=== PATIENT | female | born 1985 | race Caucasian/White ===

== ENCOUNTER 2024-02-09 23:00 | Outpatient (CLI) | payer OTHER | END 2024-02-09 23:59 | disposition critical access hospital (66) | LOC: EMS 23:00 | DX: M79.89 Other specified soft tissue disorders (principal); Z91.81 History of falling ==

== ENCOUNTER 2024-02-09 23:20 | Emergency (ER) | payer OTHER ==
[2024-02-09 23:49] LABS: BASOPHILS % (AUTO) 0.2 %; EOSINOPHILS % (AUTO) 0.1 %; HCT - HEMATOCRIT 39.3 % (37.0-47.0); HGB - HEMOGLOBIN 13.6 g/dL (12.0-16.0); LYMPHOCYTES # (AUTO) 0.9 10^3/uL (1.5-3.5); LYMPHOCYTES % (AUTO) 9.1 %; MEAN CORPUSCULAR HEMOGLOBIN 31.3 pg (27.0-31.0); MEAN CORPUSCULAR HGB CONC 34.6 g/dL (32.0-36.0); MEAN CORPUSCULAR VOLUME 90.3 fL (81.0-99.0); MEAN PLATELET VOLUME 11.2 fL (7.9-10.8); MONOCYTES # (AUTO) 0.8 10^3/uL (0.0-1.0); MONOCYTES % (AUTO) 7.3 %; NEUTROPHILS # (AUTO) 8.6 10^3/uL (1.5-6.6); NEUTROPHILS % (AUTO) 82.8 %; PLT - PLATELET COUNT 77 10^3/uL (130-450); RED BLOOD COUNT 4.35 10^6/uL (4.20-5.40); RED CELL DISTRIBUTION WIDTH 14.5 % (12.0-15.0); WHITE BLOOD COUNT 10.4 x10^3/uL (4.8-10.8)
[2024-02-10] LABS: ALBUMIN 3.5 g/dL (3.2-5.5); ALBUMIN/GLOBULIN RATIO 1.3 (1.0-2.2); CALCIUM 8.5 mg/dL (8.5-10.3); CREATININE 0.6 mg/dL (0.6-1.3); CRP - C-REACTIVE PROTEIN 2.4 mg/dL (<0.5); ETOH - ETHANOL 327.4 mg/dL; POTASSIUM 3.7 mmol/L (3.5-4.5); TOTAL PROTEIN 6.2 g/dL (6.4-8.9)
--- NOTE | 2024-02-10 01:43 | ED Physician Documentation ---
History of Present Illness - Stated complaint Stated Complaint: LEFT LEG PAIN AND SWELLING - Chief complaint Chief Complaint: Ext Problem - History obtained from History obtained from: Patient - Additonal information Additional information: Patient is an alcoholic and was undergoing intake at the local inpatient treatment center ([facility]) for treatment of alcohol withdrawal; during the intake process, it was noted that the patient has left leg swelling. The patient says she was aware of mild discomfort and the left leg swelling which she noted a few days ago. This was around the same time that she had slipped and fell in her bathtub, striking the left thigh against the edge of the bathtub. She denies chest pain, shortness of breath. She denies h/o unilateral leg swelling. She was [facility] to come to ED at this time for assessment of the left swelling, specifically for possible DVT Review of Systems Cardiac: denies: Chest pain / pressure Respiratory: denies: Dyspnea Musculoskeletal: reports: Extremity pain, Extremity swelling Neurologic: denies: Focal weakness, Numbness PD PAST MEDICAL HISTORY - Past Medical History Past Medical History: No - Past Surgical History Past Surgical History: No - Allergies Allergies/Adverse Reactions: Allergies Allergy/AdvReac Type Severity Reaction Status Date / Time No Known Drug Allergies Allergy Verified 02/09/24 23:28 - Social History Does the pt smoke?: No Smoking Status: Never smoker Does the pt drink ETOH?: Yes ETOH Use: Liquor Does the pt have substance abuse?: No PD ED PE NORMAL - Vitals Vital signs reviewed: Yes - General General: Alert and oriented X 3, Well developed/nourished, Other (appears anxious, tremulous; she is polite and articulate, follows commands quickly and accurately) - HEENT HEENT: PERRL, EOMI, Moist mucous membranes - Cardiac Cardiac: No murmur - Respiratory Respiratory: No respiratory distress, Clear bilaterally - Extremities Extremities: Other (circumferential LLE swelling at and below the level of the knee. faint erythema around the ankle without sharp/distinct margins. strong palpable left DP and PT pulses) - Neuro Neuro: Alert and oriented X 3 Eye Opening: Spontaneous Motor: Obeys Commands Verbal: Oriented GCS Score: 15 PD ED PE EXPANDED - Cardiac Cardiac: Tachy, Regular Rhythm Results - Vitals Vitals: Vital Signs - 24 hr 02/09/24 02/09/24 02/10/24 23:25 23:56 01:50 Temperature 36.8 C Heart Rate 120 H 100 111 H Respiratory 18 16 16 Rate Blood Pressure 117/99 H 110/82 H 107/74 O2 Saturation 97 96 98 02/10/24 02/10/24 02/10/24 02:59 03:57 06:00 Temperature Heart Rate 109 H 115 H 106 H Respiratory 18 18 18 Rate Blood Pressure 114/79 105/69 103/60 O2 Saturation 95 96 94 Oxygen O2 Source Room air - Labs Labs: Laboratory Tests 02/09/24 02/09/24 02/09/24 23:38 23:38 23:38 WBC 10.4 RBC 4.35 Hgb 13.6 Hct 39.3 MCV 90.3 MCH 31.3 H MCHC 34.6 RDW 14.5 Plt Count 77 L MPV 11.2 H Neut # (Auto) 8.6 H Lymph # (Auto) 0.9 L Chase # (Auto) 0.8 Eos # (Auto) 0.0 Baso # (Auto) 0.0 Absolute Nucleated RBC 0.00 Nucleated RBC % 0.0 ESR 6 D-Dimer > 1050.0 H Sodium Potassium Chloride Carbon Dioxide Anion Gap BUN Creatinine Estimated GFR (MDRD) Glucose Calcium Total Bilirubin AST ALT Alkaline Phosphatase C-Reactive Protein Total Protein Albumin Globulin Albumin/Globulin Ratio Lipase Ethyl Alcohol 02/09/24 23:38 WBC RBC Hgb Hct MCV MCH MCHC RDW Plt Count MPV Neut # (Auto) Lymph # (Auto) Chase # (Auto) Eos # (Auto) Baso # (Auto) Absolute Nucleated RBC Nucleated RBC % ESR D-Dimer Sodium 129 L Potassium 3.7 Chloride 90 L Carbon Dioxide 24 Anion Gap 15.0 H BUN 7 Creatinine 0.6 Estimated GFR (MDRD) 113 Glucose 128 H Calcium 8.5 Total Bilirubin 1.0 AST 163 H ALT 102 H Alkaline Phosphatase 197 H C-Reactive Protein 2.4 H Total Protein 6.2 L Albumin 3.5 Globulin 2.7 Albumin/Globulin Ratio 1.3 Lipase 31 Ethyl Alcohol 327.4 PD Medical Decision Making - ED course Complexity details: reviewed results, re-evaluated patient, considered differential, d/w patient ED course: The most notable abnormalities on tonight's blood tests are serum alcohol (ethanol) level of 327, thrombocytopenia (platelets 77), mild hyponatremia (sodium 129). Mild abnormalities of the LFTs include mildly elevated AST, ALT, alkaline phosphatase, and mildly low serum protein. Normal bilirubin level, normal lipase. She is given 2 mg of lorazepam IV for her alcohol withdrawal symptoms with good effect (both by visualization (the tremulousness resolved) as well as by patient report). Later in ED stay, she was given 1 mg IV lorazepam for recurrence of the tremulousness which again had the desired effect. Regarding the left leg swelling, technical laboratory asst is not on duty at this hour and will not be available for at least another 7-8 hours (from the time of my initial H&P). Thus, the initial plan also involved giving patient 100 mg Lovenox IM, [facility] with plan to have patient return in the morning when ultrasound is available so that this can be undertaken. Unfortunately, [facility] pharmacy personnel representative called and told the ED RN that they recommend no Lovenox due to the thrombocytopenia. Given the logistics of trying to discharge patient back [facility] to complete her intake just to have the patient return several hours later to reregister in the emergency department, possibly to be discharged yet again back to [facility], the plan is changed to: hold patient in the emergency department until the morning for ultrasound, and disposition and necessity of anticoagulation can then be determined based on US results. The ultrasound has not yet been undertaken at the end of my shift, and thus care of this patient is turned over to the oncoming ED physician (Dr. Hartmann). Departure - Departure Clinical Impression: Peripheral edema Alcohol withdrawal Qualifiers: Complication of substance-induced condition: uncomplicated Qualified Code(s): F10.930 - Alcohol use, unspecified with withdrawal, uncomplicated Condition: Good Instructions: ED Withdrawal Alcohol, ED Leg Swelling Unilateral Comments: You were given 2 mg of lorazepam (Ativan) through your IV; this was given to reduce the symptoms associated with alcohol withdrawal. Your left leg swelling could be due to a DVT (deep vein is thrombosis or blood clot). Unfortunately, the confirmatory test is ultrasound, and ultrasound is not available until 7 AM this morning. As we discussed, the reasonable approach in this scenario is to give a weight-based dose of a blood-thinning medication called Lovenox. You were given this medication as a shot (injection). The critical next step is to return to this emergency department between the hours of 7 AM and noon (02/10/2024) at which time you will need to again check in as an emergency department patient so that you can then have the ultrasound of your left leg. The emergency medicine physician will review the results with you and treatment recommendations will be based on those results.
[2024-02-10] MEDS: ONDANSETRON 4 MG/2 ML VIAL IVP STA ×2 (02:02→02:09)
[2024-02-10] MEDS ORDERED: ONDANSETRON 4 MG/2 ML VIAL ONE (02:03)
[2024-02-10] MEDS: LORazepam 2 MG/ML VIAL IVP STA ×4 (02:09→12:04)
[2024-02-10] MEDS: ENOXAPARIN 100 MG/ML SYRINGE SUBQ STA (02:21)
--- NOTE | 2024-02-10 09:17 | Ultrasound Report ---
PROCEDURE: Duplex Ext Veins Left INDICATIONS: atraumatic LLE swelling TECHNIQUE: Real-time imaging, as well as color and pulse Doppler interrogation, were performed of the lower extr emity deep veins from the inguinal ligament to the popliteal fossa. Attempted visualization of the ca lf veins was performed. COMPARISON: None. FINDINGS: Near-complete total occlusive thrombus is identified at the level of the inguinal iliac vei n extending into the calf vessels. IMPRESSION: Near complete lower extremity deep venous thrombosis. Reviewed by: Rola Herndon MD on 02/10/2024 9:16 AM PDT Approved by: Rola Herndon MD on 02/10/2024 9:16 AM PDT Station ID: [id number]
[2024-02-10] MEDS: APIXABAN 5 MG TABLET PO STA (09:36)
[2024-02-10] MEDS: SODIUM CHLORIDE 0.9% 1,000 ML IV STA (09:37)
--- NOTE | 2024-02-10 09:54 | ED Physician Documentation ---
ED Addendum - Addendum Addendum: 02/10/24 09:51 The patient was starting to have some withdrawal symptoms again. She is pleasant and cooperative and conversant. Will give us some more dose of lorazepam. library circulation technician did state there was clot in the left leg from the thigh down. She does have edema in the leg with some general tenderness but still has good coloration at the foot and ankle and toes. We will start her on an oral anticoagulant. She has a slightly low platelet count at 77 but a DOAC should not be contraindicated. She was given a first dose of apixaban/Eliquis here in the ER. At this point hopefully should be able to get back to detox center, [facility], for further treatment of her alcohol withdrawal. She does not have any chest pain or dyspnea and her heart rate and oxygenation are good. No indication for PEs. I wrote a prescription for her and sent it to the [facility] pharmacy locally. She typically uses [facility] in [place] but would want this to be more local assuming she is continues treatment at the detox in [place].
[2024-02-10] MEDS: PHENobarbitaL 32.4 MG TABLET PO STA (11:07)
[2024-02-10] MEDS: cloNIDine 0.1 MG TABLET PO STA (12:04)
[2024-02-10 12:23] VITALS: BP 113/76; O2SAT 97
== END 2024-02-10 12:25 | disposition home or self-care (01) ==
LOC: ED 23:20
DX: R60.0 Localized edema (principal); F10.239 Alcohol dependence with withdrawal, unspecified; Y90.8 Blood alcohol level of 240 mg/100 ml or more; D69.6 Thrombocytopenia, unspecified; E87.1 Hypo-osmolality and hyponatremia; R74.01 Elevation of levels of liver transaminase levels
CPT/HCPCS: 36415; 80053; 82077; 83690; 85025; 85379; 85651; 86140; 93971; 96374; 96376; 99284; A9270; J2060